=== PATIENT | male | born 1995 | race Caucasian/White ===

== ENCOUNTER 2020-07-07 19:04 | Emergency (ER) | payer SELFPAY ==
[~2020-07-07] VITALS: Ht 162.6 cm; Wt 125.0 kg
[2020-07-07 19:18] VITALS: BP 121/78
[2020-07-07] MEDS ORDERED: IPRATRPIUM/ALBUTEROL 0.5/2.5MG 3 ML NEBU. NEB ONE (19:30)
[2020-07-07] MEDS ORDERED: predniSONE 10 MG TABLET PO ONE (19:30)
[2020-07-07] MEDS ORDERED: PRED50TA PO (19:37)
[2020-07-07] MEDS ORDERED: VENTOLIN HFA18 GM INH (19:37)
--- NOTE | 2020-07-07 19:38 | PHYS DOC ---
Past Medical History Past Medical History: Asthma Additional Past Medical Histor: ATYPICAL DERMATITIS (ASHLY HESS APRN) Past Surgical History: No Surgical History (ASHLY HESS APRN) Smoking Status: Current Every Day Smoker Additional Information: JEWEL, AND WEED Alcohol Use: None (ASHLY HESS APRN) General Adult EDM: Chief Complaint: ASTHMA HPI: HPI: Patient is a 25 year old male with history of asthma, atopic dermatitis, who presents the ED today complaining of dry cough and shortness of breath for 1 week due to his asthma. Patient reports he has been using his mother's inhaler because he has no insurance. Patient denies any fever. He states is currently on Zyrtec. 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 (ASHLY HESS APRN) Review of Systems: Review of Systems: Constitutional: Denies fever or chills. [] Eyes: Denies change in visual acuity. [] HENT: Denies nasal congestion or sore throat. [] Respiratory: Reports cough and shortness of breath. [] Cardiovascular: Denies chest pain or edema. [] GI: Denies abdominal pain, nausea, vomiting, bloody stools or diarrhea. [] : Denies dysuria. [] Musculoskeletal: Denies back pain or joint pain. [] Integument: Denies rash. [] Neurologic: Denies headache, focal weakness or sensory changes. [] Psychiatric: Denies depression or anxiety. [] (ASHLY HESS APRN) Heart Score: Risk Factors: Risk Factors: DM, Current or recent (<one month) smoker, HTN, HLP, family history of CAD, obesity. Risk Scores: Score 0 - 3: 2.5% MACE over next 6 weeks - Discharge Home Score 4 - 6: 20.3% MACE over next 6 weeks - Admit for Clinical Observation Score 7 - 10: 72.7% MACE over next 6 weeks - Early Invasive Strategies (ASHLY HESS APRN) Current Medications: Current Medications Medications (Trade) Dose Ordered Sig/Magaly Start Time Stop Time Status Last Admin Dose Admin Albuterol/ Ipratropium (Duoneb) 3 ml 1X ONCE 07/07/20 19:30 07/07/20 19:31 DC Prednisone (Prednisone) 50 mg 1X ONCE 07/07/20 19:30 07/07/20 19:31 DC (ASHLY HESS APRN) Allergies: Allergies: Allergies Coded Allergies Type Severity Reaction Last Updated Verified Penicillins Allergy Unknown Unknown 07/07/20 Yes Sulfa (Sulfonamide Antibiotics) Allergy Unknown Unknown 07/07/20 Yes cefaclor Allergy Unknown Unknown 07/07/20 Yes (ASHLY HESS APRN) Physical Exam: PE: Constitutional: Well developed, well nourished, no acute distress, non-toxic appearance. [] HENT: Normocephalic, atraumatic, bilateral external ears normal, oropharynx moist, no oral exudates, nose normal. [] Eyes: PERRLA, EOMI, conjunctiva normal, no discharge. [] Neck: Normal range of motion, no tenderness, supple, no stridor. [] Cardiovascular:Heart rate regular rhythm, no murmur [] Lungs & Thorax: Scattered wheezing noted to posterior lung bases Abdomen: Bowel sounds normal, soft, no tenderness, no masses, no pulsatile masses. [] Skin: Warm, dry, no erythema, no rash. Eczema lesions noted on patient's antecubital joints bilaterally as well as neck Back: No tenderness, no CVA tenderness. [] Extremities: No tenderness, no cyanosis, no clubbing, ROM intact, no edema. [] Neurologic: Alert and oriented X 3, normal motor function, normal sensory function, no focal deficits noted. [] Psychologic: Affect normal, judgement normal, mood normal. [] (ASHLY HESS APRN) Current Patient Data: Vital Signs: Vital Signs Date Time Temp Pulse Resp B/P (MAP) Pulse Ox O2 Delivery O2 Flow Rate FiO2 07/07/20 19:18 98.8 82 24 121/78 (92) 96 98.8 (ASHLY HESS APRN) EKG: EKG: [] (ASHLY HESS APRN) Radiology/Procedures: Radiology/Procedures: [] (ASHLY HESS APRN) Course & Med Decision Making: Course & Med Decision Making Pertinent Labs and Imaging studies reviewed. (See chart for details) This is a 25-year-old male patient presented to the ED today with asthma exacerbation. O2 sats at 97% on room air. Patient was given DuoNeb treatment as well as prednisone. Discharged with prescription for butyryl inhaler and prednisone. Encouraged to continue using his Zyrtec. Follow-up with his own PCP in 1 to 2 weeks (ASHLY HESS APRN) Course & Med Decision Making I have reviewed the PA/CONTINUOUS IMPROVEMENT MANAGER's note and Plan of Care. I was available for consultation as needed during the patient's visit in the emergency department. I agree with the clinical impression, plans and disposition. (SAYRA GALAN MD) Dragon Disclaimer: Dragon Disclaimer: This electronic medical record was generated, in whole or in part, using a voice recognition dictation system. (ASHLY HESS APRN) Departure Departure Impression: Primary Impression: Asthma exacerbation Qualified Codes: J45.21 - Mild intermittent asthma with (acute) exacerbation Disposition: HOME, SELF-CARE Condition: STABLE Patient Instructions: Asthma, Adult, [id number] Additional Instructions: You were seen for asthma exacerbation. Use the prescribed medications as ordered. Follow-up with your own doctor in 1 to 2 weeks. Scripts Albuterol Sulfate (VENTOLIN HFA INHALER) 18 Gm Hfa.aer.ad 2 PUFF INH Q4HRS for FOR ASTHMA, #1 INHALER 0 Refills Prov: ASHLY HESS APRN 07/07/20 Prednisone (PREDNISONE) 50 Mg Tablet 1 TAB PO DAILY, #5 TAB Prov: ASHLY HESS APRN 07/07/20 Justicifation of Admission Dx: Justifications for Admission: Justification of Admission Dx: N/A (ASHLY HESS APRN) ASHLY HESS APRN Jul 07, 2020 19:38 SAYRA GLAAN MD Jul 07, 2020 19:45
== END 2020-07-07 20:20 | disposition home or self-care (01) ==
LOC: ER 19:04
DX: J45.21 Mild intermittent asthma with (acute) exacerbation (principal); F17.200 Nicotine dependence, unspecified, uncomplicated; Z88.0 Allergy status to penicillin; Z88.2 Allergy status to sulfonamides; Z88.8 Allergy status to other drugs, medicaments and biological substances
CPT/HCPCS: 94640; 99283; J7512